=== PATIENT | male | born 1975 | race Caucasian/White ===

== ENCOUNTER → 2021-03-21 | Outpatient (CLI) | payer BC | LOC: RAD 10:15 | DX: M54.2 Cervicalgia (principal); M25.511 Pain in right shoulder; M89.8X1 Other specified disorders of bone, shoulder; M54.5 Low back pain; M25.561 Pain in right knee; M47.816 Spondylosis without myelopathy or radiculopathy, lumbar region | CPT/HCPCS: 72040; 72100; 73000; 73030; 73560 ==